=== PATIENT | female | born 1925 | race Caucasian/White ===

== ENCOUNTER 2016-07-25 11:23 | Emergency (ER) | payer MEDICARE ==
--- NOTE | 2016-07-25 11:42 | ERPHSYRPT ---
- History of Present Illness Time Seen by Provider: 07/25/16 11:35 Source: patient Exam Limitations: no limitations Occurred: just prior to arrival Reason for Fall: lost balance Injuries/Pain Location: head, upper extremity Loss of Consciousness: no loss of consciousness Quality: aching Severity of Pain-Max: mild Severity of Pain-Current: mild Modifying Factors: Improves With: movement Allergies/Adverse Reactions: codeine Allergy (Verified 07/25/16 11:40) hydrocodone Allergy (Verified 07/25/16 11:40) ketoprofen Allergy (Verified 07/25/16 11:40) ketorolac Allergy (Verified 07/25/16 11:40) nalbuphine Allergy (Verified 07/25/16 11:40) propoxyphene Allergy (Verified 07/25/16 11:40) tramadol HCl [From [facility]] Allergy (Verified 07/25/16 11:40) Home Medications: Amlodipine Besylate 5 mg [Norvasc 5 mg] 5 mg PO HS 01/10/14 [History] Aspirin 81 mg PO DAILY 01/10/14 [History] Atenolol 50 mg [Tenormin 50 mg] 50 mg PO HS 01/10/14 [History] Celecoxib 100 mg [celeBREX 100 MG] 100 mg PO DAILY 01/10/14 [History] Clopidogrel Bisulfate 75 mg [PLAVIX 75 MG Tablet] 75 mg PO HS 01/10/14 [ History] Folic Acid 1 mg PO HS 01/10/14 [History] Glimepiride 2 mg [Amaryl 2 MG] 2 mg PO DAILY 01/10/14 [History] Ipratropium Armstrong 0.5 mg [Atrovent 0.5MG NEBULE] 0.5 mg IH Q4HPRN PRN [History] Isosorbide Mononitrate 30 mg [Imdur 30 MG] 30 mg PO HS 01/10/14 [History] Levothyroxine Sodium 88 Mcg [Synthroid 88 Mcg] 88 mcg PO DAILY 01/10/14 [ History] Magnesium Oxide 400 mg [Mag-Ox 400] 400 mg PO DAILY 01/10/14 [History] Meclizine HCl 25 mg [Antivert 25 mg] 25 mg PO HS 01/10/14 [History] Ranitidine HCl [Zantac] 150 mg PO DAILY 01/10/14 [History] Rosuvastatin Calcium [Crestor] 20 mg PO DAILY 01/10/14 [History] Torsemide [Demadex] 20 mg PO DAILY 01/10/14 [History] Zafirlukast [Accolate] 10 mg PO HS 01/10/14 [History] Hx Tetanus, Diphtheria Vaccination/Date Given: Yes (3 YRS) Hx Influenza Vaccination/Date Given: Yes Hx Pneumococcal Vaccination/Date Given: Yes - Review of Systems Constitutional: No Symptoms Eyes: Tearing Ears, Nose, & Throat: No Symptoms Respiratory: No Symptoms Cardiac: No Symptoms Abdominal/Gastrointestinal: No Symptoms Musculoskeletal: Joint Pain (left upper arm) Skin: No Symptoms Neurological: No Symptoms Psychological: No Symptoms Endocrine: No Symptoms Hematologic/Lymphatic: No Symptoms Immunological/Allergic: No Symptoms - Past Medical History Pertinent Past Medical History: Yes Cardiac History: Coronary Artery Disease, High Cholesterol, Hypertension Respiratory History: Other Endocrine Medical History: Diabetes Type II - Past Surgical History Past Surgical History: Yes Cardiac: Cardiac Catheterization, Cardiac Stent Gastrointestinal: Appendectomy, Cholecystectomy Female Surgical History: Hysterectomy - Social History Smoking Status: Former smoker Exposure to second hand smoke: No Drug Use: none Patient Lives Alone: No - Nursing Vital Signs Nursing Vital Signs: Initial Vital Signs Temperature 99.2 F Temperature Source Oral Pulse Rate 94 Respiratory Rate 16 Blood Pressure 132/68 Pain Intensity 4 - Suki Coma Score Best Eye Response (Kermit): (4) open spontaneously Best Verbal Response (Kermit): (5) oriented Best Motor Response (Kermit): (6) obeys commands Kermit Total: 15 - Physical Exam General Appearance: mild distress Head Injury: contusions, swelling, tenderness Eye Exam: PERRL/EOMI, eyes nml inspection ENT Exam: airway nml Neck Exam: supple, trachea midline, full range of motion Respiratory/Chest Exam: normal breath sounds Cardiovascular Exam: normal heart sounds, regular rate/rhythm Gastrointestinal Exam: soft, normal bowel sounds Extremity Exam: capillary refill <3 sec, tenderness (left humerus) Neurologic Exam: alert, oriented x 3, cooperative Skin Exam: normal color, warm, dry SpO2 Interpretation: normal SpO2: 97 Oxygen Delivery: Room Air - Course Nursing assessment & vital signs reviewed: Yes - Radiology Exams Humerus X-ray Interpretation: Discussed w/ radiologist, Negative, No Fracture - CT Exams Head CT Interpretation: Discussed w/radiologist, Other (old left parietal lobe infarct. nonacute senile brain.) Ordered Tests: Active Orders 24 hr Category Date Time Status HEAD WITHOUT CONTRAST [CT] Stat Exams 07/25/16 11:41 Completed HUMERUS Stat Exams 07/25/16 11:40 Completed - Progress Progress: improved Counseled pt/family regarding: diagnosis, need for follow-up (with PCP), rad results - Departure Time of Disposition: 12:10 Departure Disposition: Home Clinical Impression: Closed head injury without concussion Qualifiers: Encounter type: initial encounter Qualified Code(s): S09.90XA - Unspecified injury of head, initial encounter Condition: Stable Critical Care Time: Yes Critical Care Time(excluding separately billable procedures): 30-74 minutes
--- NOTE | 2016-07-25 12:05 | XRAY ---
Indication: Head injury following fall. Multiple contiguous images obtained through the head without contrast. Comparison: None Age-appropriate global atrophy and minimal periventricular degenerative micro-ischemia. 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 No acute intracranial hemorrhage, abnormal extra-axial fluid collection, or mass effect. Fourth ventricle is midline without hydrocephalus. Bony calvarium intact. Mild mucosal thickening of both ethmoid sinuses. Mastoid air cells are pneumatized and clear. 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 Incidental paranasal sinus disease. CT DI is 50.53
--- NOTE | 2016-07-25 12:05 | XRAY ---
Indication: Fall. Comparison: None 2 views of the left humerus demonstrates age-related osteopenia and moderate AC degenerative arthropathy. No other bony, articular, or soft tissue abnormalities.
[2016-07-25] MEDS ORDERED: Erythromycin 3.5 GM OPHTH. OP ONE (12:19)
[2016-07-25] MEDS ORDERED: Erythromycin 1 GM ONE (12:22)
[2016-07-25 12:36] VITALS: BP 148/73; PULSE 84; O2SAT 98
== END 2016-07-25 12:35 | disposition home or self-care (01) ==
LOC: ED 11:23
DX: S09.90XA Unspecified injury of head, initial encounter (principal); Z79.899 Other long term (current) drug therapy; W19.XXXA Unspecified fall, initial encounter
CPT/HCPCS: 70450; 73060; 99282